=== PATIENT | male | born 1955 | race Caucasian/White ===

== ENCOUNTER 2020-01-04 17:47 | Emergency (ER) | payer MEDICARE ==
[~2020-01-04] VITALS: Ht 182.9 cm; Wt 105.5 kg
[~2020-01-04 17:47] MED LIST: ASPIRIN325 MG PO; LIPITOR10 MG PO; LOPRESSOR25 MG PO; PLAVIX75 MG PO; PRILOSEC20 MG PO
[2020-01-04 17:51] VITALS: Ht 182.9 cm; Wt 105.5 kg
[2020-01-04] MEDS ORDERED: CARDURA2 MG PO (17:53)
[2020-01-04] MEDS ORDERED: PROTONIX40 MG PO (17:53)
[2020-01-04] MEDS ORDERED: COZAAR100 MG PO (17:53)
[2020-01-04] MEDS ORDERED: METOPROLOL TART50 MG PO (18:29)
[2020-01-04 19:02] LABS: BASOPHILS 0.1 % (0-2); EOSINOPHILS 0.3 % (0-7); HEMATOCRIT 41.1 % (42.0-54.0); HEMOGLOBIN 12.6 g/dL (13.5-17.5); IMMATURE GRANULOCYTES 0.6 % (0-5); LYMPHOCYTES 4.3 % (15-50); MCHC 30.7 g/dL (31.0-37.0); MCV 84.9 fL (80.0-100.0); MEAN PLATELET VOLUME 10.8 fL (7.4-10.4); MONOCYTES 5.1 % (2-11); NEUTROPHILS 89.6 % (40-80); PLATELET COUNT 173 10x3/uL (130-400); RBC 4.84 10x6/uL (4.20-6.10); RDW 16.3 % (11.5-14.5); WBC 11.3 10x3/uL (4.8-10.8)
[2020-01-04 19:14] LABS: APTT 30.9 SECONDS (22.8-39.4); CALC OSMOLALITY 283 mosm/kg (275-300); CALCIUM 8.6 mg/dL (8.5-10.1); CARBON DIOXIDE 27.9 mmol/L (21.0-32.0); CHLORIDE - SERUM 103 mmol/L (98-107); CREATININE - SERUM 1.9 mg/dL (0.6-1.3); GLUCOSE 121 mg/dL (74-106); INR 1.13 (0.85-1.17); POTASSIUM - SERUM 3.7 mmol/L (3.5-5.1); PROTIME 14.5 SECONDS (11.6-15.0); SODIUM 139 mmol/L (136-145); UREA NITROGEN 26 mg/dL (7-18); eGFR NON AFRICAN AMERICAN 38 mL/min (90-120)
[2020-01-04 19:28] LABS: ALBUMIN 3.2 g/dL (3.4-5.0); ALKALINE PHOSPHATASE 70 U/L (30-120); ALT (SGPT) 19 U/L (10-68); BILIRUBIN - TOTAL 0.74 mg/dL (0.2-1.3); CKMB 1.6 U/L (0.0-3.6); CREATINE KINASE 189 UL (21-232); MAGNESIUM - SERUM 1.7 mg/dL (1.8-2.4); PROTEIN - SERUM 7.6 g/dL (6.4-8.2)
[2020-01-04 19:29] LABS: TROPONIN-I < 0.017 ng/mL (0.000-0.060)
[2020-01-04 22:20] VITALS: BP 121/64
== END 2020-01-04 23:43 | disposition short-term general hospital (02) ==
LOC: D.ER 17:47
PROVIDERS: Family Medicine
DX: S72.001A Fracture of unspecified part of neck of right femur, initial encounter for closed fracture (principal); S27.329A Contusion of lung, unspecified, initial encounter; N28.9 Disorder of kidney and ureter, unspecified; R10.9 Unspecified abdominal pain; W17.89XA Other fall from one level to another, initial encounter; Y93.9 Activity, unspecified; Y92.9 Unspecified place or not applicable; I10 Essential (primary) hypertension